=== PATIENT | female | born 1960 | race Caucasian/White ===

== ENCOUNTER 2017-06-29 18:30 | Observation (INO) | payer BC, OTHER ==
[~2017-06-29] VITALS: Ht 170.2 cm; Wt 80.6 kg
[~2017-06-29 18:30] MED LIST: BACL10TA PO; BUTR20DI T-DERMAL; DARV PO; DICL75TA PO; GABA600T PO; KETO0.02 EACH EYE; LORT5TAB PO; MAGNESIUM HYDROXIDE SUSP 30 ML CUP PO PRN; MORPHINE SULFATE 2 MG/ML INJ IM PRN; MORPHINE SULFATE 4 MG/ML INJ IV PUSH PRN; NALOXONE HCL 0.4 MG/ML AMP IV PUSH PRN; NITROGLYCERIN 0.4 MG SL 25 TABS/BTL SL PRN; NUCY75TA5 PO; ONDANSETRON HCL 4 MG/2 ML VIAL IVP PRN; SODIUM CHLORIDE 0.9% FLUSH 10 ML FLUSH IV FLUSH PRN; TAPENTADOL 75 MG PO PRN; TEGR200T PO; Z.0.NO CURRENT MEDS; [UNRECOGNIZED DRUG - OTHER] EACH EYE PRN
--- NOTE | 2017-06-29 18:44 | HHI.HP ---
[facility]Staff Admission Diagnosis Diagnoses: (1) Chest pain Diagnosis: Principal (2) Seizure disorder Diagnosis: Secondary (3) Cerebral palsy Diagnosis: Secondary (4) Hypertension Diagnosis: Secondary (5) Presbycusis Diagnosis: Secondary Travel History International Travel<30 Days: No Contact w/Intl Traveler <30 Da: No Traveled to Known Affected Are: No History of Present Illness Mrs. Reyes is a 57 year old female. She came into the emergency department at [place] secondary to chest pain. She says the chest pain started acutely in the center of her chest and was tight and sharp in nature at first. This pain lasted about 5 minutes. She was not active when the pain started. She was sitting at her computer. The pain has continued but is more dull now with the tight nature. Preceding this by 2-3 day she did have a sharp acute onset at the left side of her head, her is concerned for a brain event such as a bleed (he is a retired ER doctor). No other complaints at this time. No diaphoresis or nausea or vomiting. No history of problems with reflux. Review of Systems Constitutional: DENIES: Diaphoretic episodes, Fatigue, Fever, Chills, Night Sweats Eyes: DENIES: Blurred vision, Diplopia, Eye inflammation, Eye pain Ears, nose, mouth, throat: COMPLAINS OF: Hearing loss, DENIES: Vertigo, Nasal discharge Respiratory: DENIES: Apneas, Cough, Snoring, Wheezing Cardiovascular: COMPLAINS OF: Chest pain, DENIES: Palpitations, Syncope Gastrointestinal: DENIES: Abdominal pain, Black stools, Bloody stools Musculoskeletal: DENIES: Joint pain, Muscle aches, Stiffness Integumentary: DENIES: Abnormal pigmentation, Pruritus, Rash, Nail changes Hematologic/lymphatic: DENIES: Bruising, Lymphadenopathy Immunologic/allergic: DENIES: Eczema, Urticaria Neurologic: DENIES: Abnormal gait, Headache, Paresthesias Psychiatric: DENIES: Anxiety, Confusion, Hallucinations Past Family Social History Past Medical History Cerebral palsy Seizure disorder Presbycusis Hypertension History of TIA 2 Past Surgical History Hysterectomy Appendectomy 4 sinus surgeries Reported Medications Reported Meds & Active Scripts Active Reported ZyrTEC Itchy Eye Opth Drops (Ketotifen Opth Drops) 0.025% Drops 1 Drop EACH EYE BID PRN Baclofen 10 Mg Tab 10 Mg PO TID Nucynta (Tapentadol) 75 Mg Tab 75 Mg PO Q4H PRN Diclofenac Sodium DR (Diclofenac Sodium) 75 Mg Tabdr 75 Mg PO BID Butrans Patch 168 HR (Buprenorphine Patch 168 HR) 20 Mcg/Hr Patch 1 Patch T- DERMAL Q7D Gabapentin 600 Mg Tab 600 Mg PO HS Tegretol (Carbamazepine) 200 Mg Tab 200 Mg PO BID Allergies: Coded Allergies: meperidine (Unverified Allergy, Mild, SEIZURES, 06/29/17) Family History Myocardial infarction and 3 CVAs in mother Congestive heart failure in sister Social History Patient smokes 4-10 cigarettes per day No alcohol abuse No Illicit drug abuse Physical Exam Physical Exam GENERAL: NAD, A&Ox3 HEAD: Normocephalic. NECK: Supple, trachea midline. No lymphadenopathy. EYES: No scleral icterus. No injection or drainage. CARDIOVASCULAR: Regular rate and rhythm without murmurs, gallops, or rubs. RESPIRATORY: Breath sounds equal bilaterally. No accessory muscle use. GASTROINTESTINAL: Abdomen soft, non-tender, nondistended. MUSCULOSKELETAL: No cyanosis, or edema. SKIN: Warm and dry. NEURO: No focal neurological deficitis. Caprini VTE Risk Assessment Caprini VTE Risk Assessment: Mod/High Risk (score >= 2) Caprini Risk Assessment Model Point Value = 1 Point Value = 2 Point Value = 3 Point Value = 5 Age 41-60 Minor surgery BMI > 25 kg/m2 Swollen legs Varicose veins or History of unexplained or recurrent spontaneous Oral contraceptives or hormone replacement Sepsis (< 1 month) Serious lung disease, including pneumonia (< 1 month) Abnormal pulmonary function Acute myocardial infarction Congestive heart failure (< 1 month) History of inflammatory bowel disease Medical patient at bed rest Age 61-74 Arthroscopic surgery Major open surgery (> 45 min) Laparoscopic surgery (> 45 min) Malignancy Confined to bed (> 72 hours) Immobilizing plaster cast Central venous access Age >= 75 History of VTE Family history of VTE Factor V Leiden Prothrombin [id number] Lupus anticoagulant Anticardiolipin antibodies Elevated serum homocysteine Heparin-induced thrombocytopenia Other congenital or acquired thrombophilia Stroke (< 1 month) Elective arthroplasty Hip, pelvis, or leg fracture Acute spinal cord injury (< 1 month) Prophylaxis Regimen Total Risk Factor Score Risk Level Prophylaxis Regimen 0-1 Low Early ambulation 2 Moderate Order ONE of the following: *Sequential Compression Device (SCD) *Heparin 5000 units SQ BID 3-4 Higher Order ONE of the following medications: *Heparin 5000 units SQ TID *Enoxaparin/Lovenox 40 mg SQ daily (WT < 150 kg, CrCl > 30 mL/min) *Enoxaparin/Lovenox 30 mg SQ daily (WT < 150 kg, CrCl > 10-29 mL/min) *Enoxaparin/Lovenox 30 mg SQ BID (WT < 150 kg, CrCl > 30 mL/min) AND/OR *Sequential Compression Device (SCD) 5 or more Highest Order ONE of the following medications: *Heparin 5000 units SQ TID (Preferred with Epidurals) *Enoxaparin/Lovenox 40 mg SQ daily (WT < 150 kg, CrCl > 30 mL/min) *Enoxaparin/Lovenox 30 mg SQ daily (WT < 150 kg, CrCl > 10-29 mL/min) *Enoxaparin/Lovenox 30 mg SQ BID (WT < 150 kg, CrCl > 30 mL/min) AND *Sequential Compression Device (SCD) Assessment and Plan Problem List: (1) Presbycusis ICD Code: H91.10 - Presbycusis, unspecified ear (2) Cerebral palsy ICD Code: G80.9 - Cerebral palsy, unspecified (3) Seizure disorder ICD Code: G40.909 - Epilepsy, unspecified, not intractable, without status epilepticus (4) Chest pain ICD Code: R07.9 - Chest pain, unspecified (5) Hypertension ICD Code: I10 - Essential (primary) hypertension Assessment and Plan Assessment and plan 57-year-old female admitted secondary to chest pain Chest pain Evaluate for ACS Follow cardiac enzymes Aspirin daily When necessary oxygen When necessary morphine for pain. When necessary nitroglycerin Follow on telemetry Stress test planned in the morning if cardiac workup is negative overnight Acute cephalgia Past history of TIAs (2) Evaluate for intracranial bleeding with noncontrast CT of brain Cerebral palsy Seizure disorder Presbycusis No exacerbations Continue baseline management and treatments Hypertensive urgency Hypertension Not currently on any baseline treatment Follow blood pressures Begin as needed enalapril Begin as needed clonidine If trends are elevated consider long-term blood pressure treatment DVT prophylaxis SCDs until intracranial bleed ruled out Bulmaro Sotelo MD Jun 29, 2017 18:44
[2017-06-29 18:45] VITALS: BP 189/108; PULSE 78; RESP 12; TEMP 96; O2SAT 95
[2017-06-29] MEDS ORDERED: cloNIDine HCL 0.1 MG TAB PO PRN (19:15)
[2017-06-29] MEDS ORDERED: ENALAPRILAT 1.25 MG/ML VIAL IV PUSH PRN (19:15)
[2017-06-29 20:00] VITALS: BP 142/81; PULSE 73
[2017-06-29 20:26] VITALS: O2SAT 98
[2017-06-29] MEDS ORDERED: SODIUM CHLORIDE 0.9% FLUSH 10 ML FLUSH IV FLUSH SCH (21:00)
[2017-06-29] MEDS ORDERED: GABAPENTIN 300 MG CAP PO SCH (21:00)
[2017-06-29] MEDS: NITROGLYCERIN 2% OINT 1 GM PACKET TOPICAL SCH (22:02)
[2017-06-29] MEDS: carBAMazepine 200 MG TAB PO SCH (22:02)
[2017-06-29] MEDS: HEPARIN SODIUM - SQ 10,000 UNITS/ML VIAL SQ SCH (22:03)
[2017-06-29 22:10] LABS: CREATINE KINASE 47 U/L (26-192)
[2017-06-29] MEDS: BACLOFEN 10 MG TAB PO SCH (22:20)
[2017-06-29] MEDS: DICLOFENAC SODIUM 75 MG DELAYED RELEASE TAB PO SCH (22:20)
[2017-06-29] MEDS: SODIUM CHLORIDE 0.9% FLUSH 10 ML FLUSH IV FLUSH SCH (22:21)
[2017-06-29 23:00] VITALS: PULSE 64
[2017-06-30] VITALS: BP 141/85; PULSE 72; RESP 20; TEMP 96.5; O2SAT 97
[2017-06-30 04:00] VITALS: BP 120/60; PULSE 72; RESP 20; TEMP 96.5; O2SAT 98
[2017-06-30 04:30] LABS: CREATINE KINASE 48 U/L (26-192)
[2017-06-30] MEDS: NITROGLYCERIN 2% OINT 1 GM PACKET TOPICAL SCH ×2 (06:00→14:00)
[2017-06-30 07:10] VITALS: PULSE 75
[2017-06-30 07:35] LABS: AUTOMATED NEUTROPHIL # 4.3 TH/MM3 (1.8-7.7); BASOPHIL # 0.1 TH/MM3 (0-0.2); BASOPHIL % 1.1 % (0.0-2.0); EOSINOPHIL # 0.1 TH/MM3 (0-0.4); EOSINOPHIL % 0.8 % (0.0-4.0); HEMATOCRIT 41.8 % (35.0-46.0); HEMO FLAGS DIFF FINAL; LYMPH % 28.5 % (9.0-44.0); MEAN CELL VOLUME 87.1 FL (80.0-100.0); MEAN CORPUSCULAR HEMOGLOBIN 29.1 PG (27.0-34.0); MEAN CORPUSCULAR HGB CONC 33.4 % (32.0-36.0); MONO % 6.7 % (0.0-8.0); NEUT % 62.9 % (16.0-70.0); PLATELET COUNT 195 TH/MM3 (150-450); RED CELL DISTRIBUTION WIDTH 12.7 % (11.6-17.2)
[2017-06-30 07:47] VITALS: O2SAT 96
[2017-06-30 07:48] LABS: CHLORIDE 106 MEQ/L (98-107); POTASSIUM 3.7 MEQ/L (3.5-5.1); SODIUM (NA) 140 MEQ/L (136-145)
[2017-06-30 07:50] VITALS: BP 119/63; PULSE 66; RESP 20; TEMP 96.9; O2SAT 97
[2017-06-30 07:53] LABS: ANION GAP 4 MEQ/L (5-15); BICARBONATE 30.1 MEQ/L (21.0-32.0); BLOOD UREA NITROGEN 18 MG/DL (7-18)
[2017-06-30 07:56] LABS: ALT (GPT) 30 U/L (10-53); AST (GOT) 15 U/L (15-37); GLOMERULAR FILTRATION RATE 118 ML/MIN (>89)
[2017-06-30 07:58] LABS: TOTAL BILIRUBIN ADULT 0.4 MG/DL (0.2-1.0)
[2017-06-30 07:59] LABS: ALKALINE PHOSPHATASE 133 U/L (45-117)
[2017-06-30] MEDS: carBAMazepine 200 MG TAB PO SCH (08:54)
[2017-06-30] MEDS: DICLOFENAC SODIUM 75 MG DELAYED RELEASE TAB PO SCH (08:54)
[2017-06-30] MEDS: SODIUM CHLORIDE 0.9% FLUSH 10 ML FLUSH IV FLUSH SCH (08:55)
[2017-06-30] MEDS: BACLOFEN 10 MG TAB PO SCH ×2 (08:58→12:30)
[2017-06-30] MEDS: HEPARIN SODIUM - SQ 10,000 UNITS/ML VIAL SQ SCH (08:58)
[2017-06-30] MEDS ORDERED: REGADENOSON INJ 0.4 MG/5 ML SYR IV ONE (10:36)
--- NOTE | 2017-06-30 11:30 | HHI.PR ---
Subjective Remarks Patient seen and examined today for follow-up on chest pain. Patient states that she has no longer experiencing any chest discomfort. Discussed with the patient her workup thus far has remained negative. Patient does not think that she can tolerate the inclined on a exercise stress test. Will pursue chemical stress test Objective Vitals Vital Signs Date Time Temp Pulse Resp B/P (MAP) Pulse Ox O2 Delivery O2 Flow Rate FiO2 06/30/17 07:50 96.9 66 20 119/63 (81) 97 06/30/17 07:47 96 Nasal Cannula 2.00 06/30/17 04:00 96.5 72 20 120/60 (80) 98 06/30/17 00:00 96.5 72 20 141/85 (103) 97 06/29/17 23:00 64 06/29/17 20:26 98 Nasal Cannula 2.00 06/29/17 20:00 73 142/81 (101) 06/29/17 18:45 96.0 78 12 189/108 (135) 95 I/O 06/29/17 06/29/17 06/29/17 06/30/17 06/30/17 06/30/17 07:00 15:00 23:00 07:00 15:00 23:00 Intake Total 240 ml 0 ml Balance 240 ml 0 ml Intake Oral 240 ml 0 ml # Voids 4 4 # Bowel Movements 0 Result Diagram: 06/30/17 0710 06/30/17 0710 Objective Remarks GENERAL: Well-developed, well-nourished, in no acute distress. alert and orientated HEENT: Head is normocephalic without any lesions or masses noted. Facial features are symmetric. Eyes: Extraocular muscles are intact. Conjunctivae were clear. NECK: Supple without any masses. Trachea midline no deviation. No JVD, CARDIAC: Regular rhythm, regular rate. S1/S2 are heard. No murmurs gallops or rubs. LUNGS: Clear to auscultation bilaterally. No wheeze, rhonchi or rales. No use of accessory muscles on inspiration or expiration. ABDOMEN: Soft, nontender. Nondistended. Bowel sounds heard in all 4 quadrants. No organomegaly or masses. Negative rebound, negative guarding EXTREMITIES: No edema, pulses are equal bilaterally. No cyanosis or clubbing NEUROLOGY: Mood and affect appear appropriate. Cranial nerves II through XII grossly intact. Moving all extremities, speech is clear Urinary Catheter: No Vascular Central Line Catheter: No A/P Assessment and Plan Chest pain Patient has been ruled out for any acute coronary event with serial cardiac enzymes that are negative, serial EKGs do not indicate any acute changes Will pursue nuclear stress test rule out any underlying ischemia Continue Aspirin daily Continue When necessary oxygen Continue When necessary morphine for pain. Continue When necessary nitroglycerin Acute cephalgia Past history of TIAs (2) Could be secondary to accelerated hypertension CT scan of the brain did not indicate any acute abnormality. Cerebral palsy Seizure disorder Presbycusis No exacerbations Continue baseline management and treatments Elevated blood pressure reading Blood pressure stable at this time Continue as needed enalapril Continue as needed clonidine Continue monitoring blood pressure in outpatient setting, patient will need to address with primary medical doctor for treatment. DVT prophylaxis SCDs until intracranial bleed ruled out Discharge Planning Discharge home in stable condition if stress test is negative and CT scan is negative Activity: Ad leo. Diet: Healthy heart diet Medications per medication reconciliation Follow-up with primary medical doctor in one week Antonio Boucher Jun 30, 2017 11:30
--- NOTE | 2017-06-30 11:44 | RADRPT ---
EXAM DATE/TIME: 06/30/2017 10:20 [facility] COMPARISON: No previous studies available for comparison. INDICATIONS : Left sided chest pain. Angina. DOSE: 25.9 mCi Tc99m Myoview at stress. 8.1 mCi Tc99m Myoview at rest. 0.4 mg Lexiscan STRESS SYMPTOMS: Nausea. EJECTION FRACTION: 69% MEDICAL HISTORY : Stroke. Smoker and asthma. SURGICAL HISTORY : None. ENCOUNTER: Initial ACUITY: 1 day PAIN SCALE: 3/10 LOCATION: Left chest TECHNIQUE: The patient underwent pharmacologic stress with infusion of prescribed dose. Continuous ECG tracing was monitored during stress. Gated SPECT imaging was performed after stress and conventional SPECT i maging was performed at rest. The examination was performed on a SPECT/CT scanner, both attenuation and non-corrected datasets were reviewed. FINDINGS: DISTRIBUTION: The maximum perfused segment at stress is in the septal wall. PERFUSION STUDY: The pattern of perfusion at stress is within normal limits. GATED STUDY: There is intact wall motion and thickening without hypokinetic or dyskinetic segments. CONCLUSION: Unremarkable myocardial perfusion exam. RISK CATEGORY: Low William Esquivel MD on June 30, 2017 at 11:41 Board Certified Radiologist. This report was verified electronically.
--- NOTE | 2017-06-30 11:48 | HHI.DCPOC ---
Discharge Care Plan Diagnosis: (1) Chest pain Goals to Promote Your Health * To prevent worsening of your condition and complications * To maintain your health at the optimal level Directions to Meet Your Goals Take your medications as prescribed Follow your dietary instruction Follow activity as directed Keep your appointments as scheduled Take your immunizations and boosters as scheduled If your symptoms worsen call your PCP, if no PCP go to Urgent Care Center or Emergency Room Smoking is Dangerous to Your Health. Avoid second hand smoke Call the 24-hour hour crisis hotline for domestic abuse at Antonio Boucher Jun 30, 2017 11:48
[2017-06-30 11:50] VITALS: BP 130/60; PULSE 76; RESP 20; TEMP 97; O2SAT 91
[2017-06-30] MEDS ORDERED: PROMETHAZINE INJ 25 MG/ML VIAL IM ONE (12:45)
--- NOTE | 2017-06-30 13:54 | TR ---
Date Performed: 06/30/2017 Time Performed: 10:50:37 DOCTOR: Suzanne Chakraborty DRUG LIST: CLINICAL HISTORY: REASON FOR TEST: REASON FOR ENDING: OBSERVATION: CONCLUSION: Lexiscan stress test was performed under standard four minute protocol. Radionuclid e was injected one minute prior to ending the test. No electrocardiographic abormalities were present to suggest ischemia. Nuclear imaging and interpretation are pending. COMMENTS:
--- NOTE | 2017-06-30 19:05 | EKG ---
Date Performed: 06/29/2017 Time Performed: 21:27:54 PTAGE: 57 years EKG: Sinus rhythm NONSPECIFIC T-WAVE ABNORMALITY BORDERLINE ECG Compared to prior tracing no significant change PREVIOUS TRACING : 06/29/2017 15.35.44 DOCTOR: Suzanne Chakraborty Interpretating Date/Time 06/30/2017 19:03:31
--- NOTE | 2017-06-30 19:06 | EKG ---
Date Performed: 06/30/2017 Time Performed: 03:22:24 PTAGE: 57 years EKG: Sinus rhythm POSSIBLE LEFT ATRIAL ENLARGEMENT POSSIBLE RIGHT VENTRICULAR CONDUCTION DELAY NONSPECIFIC T-WAVE ABNO RMALITY BORDERLINE ECG Compared to prior tracing no significant change PREVIOUS TRACING : 06/29/2017 21.27 DOCTOR: Suzanne Chakraborty Interpretating Date/Time 06/30/2017 19:03:45
[2017-07-01] MEDS ORDERED: ASPIRIN 325 MG TAB PO SCH (09:00)
--- NOTE | 2017-07-01 09:44 | RADRPT ---
EXAM DATE/TIME: 06/29/2017 23:48 [facility] COMPARISON: No previous studies available for comparison. INDICATIONS : Unilateral cephalgia. RADIATION DOSE: 56.14 CTDIvol (mGy) MEDICAL HISTORY : Cerebrovascular disease. cerebral palsy. Epilepsy. SURGICAL HISTORY : None. ENCOUNTER: Initial ACUITY: 1 day PAIN SCALE: 6/10 LOCATION: Left cranial TECHNIQUE: Multiple contiguous axial images were obtained of the head. Using automated exposure control and adj ustment of the mA and/or kV according to patient size, radiation dose was kept as low as reasonably a chievable to obtain optimal diagnostic quality images. DICOM format image data is available electro nically for review and comparison. FINDINGS: CEREBRUM: The ventricles are normal for age. No evidence of midline shift, mass lesion, hemorrhage or acute in farction. No extra-axial fluid collections are seen. POSTERIOR FOSSA: The cerebellum and brainstem are intact. The 4th ventricle is midline. The cerebellopontine angle i s unremarkable. EXTRACRANIAL: The visualized portion of the orbits is intact. There is benign-appearing mucosal disease in the righ t maxillary sinus. SKULL: The calvaria is intact. No evidence of skull fracture. CONCLUSION: 1. No evidence of acute intracranial pathology. No masses are identified. Cipriano Reid MD on June 30, 2017 at 0:49 Board Certified Radiologist. This report was verified electronically.
[2017-07-05] MEDS ORDERED: [UNRECOGNIZED DRUG - OTHER] OTHER SCH (09:00)
== END 2017-06-30 15:48 | disposition home or self-care (01) ==
LOC: PHEDDLT 18:30 → PH3A 18:31
PROVIDERS: ADMIT Family Medicine; ATTEND Family Medicine
DX: R07.89 Other chest pain (principal); G80.9 Cerebral palsy, unspecified; G40.909 Epilepsy, unspecified, not intractable, without status epilepticus; H91.10 Presbycusis, unspecified ear; I10 Essential (primary) hypertension; F17.210 Nicotine dependence, cigarettes, uncomplicated; R94.31 Abnormal electrocardiogram [ECG] [EKG]; Z86.73 Personal history of transient ischemic attack (TIA), and cerebral infarction without residual deficits
CPT/HCPCS: 70450; 71010; 78452; 80048; 80053; 82550; 83735; 83880; 84484; 85025; 85379; 85610; 85730; 93005; 93017; 96372; 96374; 99285; A9502; G0378; J1644; J2405; J2785